=== PATIENT | male | born 1960 | race Caucasian/White ===

== ENCOUNTER → 2016-07-05 | Outpatient (CLI) | payer OTHER ==
[2016-07-05 17:11] LABS: Basophils # (A) 0.1 k/uL (0-0.2); Basophils % (A) 1 %; CH 29.7; CHCM 34.9; Eosinophils # (A) 0.2 k/uL (0-0.7); Eosinophils % (A) 2 %; HDW 2.91; Luc # (Auto) 0.14; Luc % (Auto) 2; Lymphocytes # (A) 2.5 k/uL (1.0-4.8); Lymphocytes % (A) 37 %; MCH 29.7 pg (25.0-35.0); MCHC 34.7 g/dL (31.0-37.0); MCV 85.6 fL (80.0-100.0); Mean Platelet Volume 6.8; Monocytes # (A) 0.4 k/uL (0-1.0); Monocytes % (A) 6 %; Neutrophils # (A) 3.4 k/uL (1.3-7.7); Neutrophils % (A) 51 %; RBC 5.38 m/uL (4.30-5.90); RDW 13.9 % (11.5-15.5); WBC 6.6 k/uL (3.8-10.6); WBC (Perox) 6.66
[2016-07-05 17:23] LABS: Partial Thromboplastin Time 23.8 sec (22.0-30.0); Prothrombin Time 10.1 sec (9.0-12.0)
[2016-07-05 17:25] LABS: Anion Gap 15 mmol/L; Blood Urea Nitrogen 15 mg/dL (9-20); Calcium 9.7 mg/dL (8.4-10.2); Carbon Dioxide 24 mmol/L (22-30); Chloride 104 mmol/L (98-107); Glucose 144 mg/dL (74-99); Non-African American GFR(MDRD) >60 (>60 ml/min/1.73 sqM); Potassium 4.3 mmol/L (3.5-5.1); Sodium 143 mmol/L (137-145)
[2016-07-05 17:44] LABS: Appearance,Urine Clear (Clear); Bilirubin,Urine Negative (Negative); Glucose,Urine (UA) 4+ (Negative); Ketones,Urine 1+ (Negative); Leukocyte Esterase,Urine Negative (Negative); Nitrite,Urine Negative (Negative); Protein,Urine Negative (Negative); Specific Gravity,Urine 1.019 (1.001-1.035); UA Billing (MACRO vs. MICRO) CHEM; Urobilinogen,Urine <2.0 mg/dL (<2.0)
--- NOTE | 2016-07-05 17:49 | XR ---
EXAMINATION TYPE: XR chest 2V DATE OF EXAM: 07/05/2016 5:08 PM COMPARISON: 07/26/2013 HISTORY: Preop testing. Chest pain. TECHNIQUE: Frontal and lateral views of the chest are obtained. FINDINGS: Heart and mediastinum are within normal limits. Lungs are clear of consolidation. Thoracic aorta is atheromatous. There are no hilar masses. There is no pleural effusion. Bony thorax is intac t. IMPRESSION: No active cardiopulmonary disease. No change.
== END ==
LOC: LABPAT 16:31
PROVIDERS: ATTEND Orthopaedic Surgery Orthopaedic Surgery of the Spine
DX: Z01.818 Encounter for other preprocedural examination (principal); Z01.810 Encounter for preprocedural cardiovascular examination; Z01.812 Encounter for preprocedural laboratory examination
CPT/HCPCS: 71020; 80048; 81003; 85025; 85610; 85730; 87070

== ENCOUNTER 2016-07-13 08:36 | Inpatient (IN) | payer BC, OTHER ==
[~2016-07-13 08:36] MED LIST: BACITRACIN 50,000 UNIT, POLYMYXIN B 500,000 UNIT in SODIUM CHLORIDE 0.9% IRRIGATIO 1,00... IRRIGATION ONE; DEXAMETHASONE SOD PHOSPHATE 10 MG/ML 1 ML VIAL IV ONE; LIDOCAINE 1% 20 ML VIAL (10MG/ML) FOR IV START INTRADERMA PRN; MIDAZOLAM 2 MG/2 ML VIAL IV PRN; ONDANSETRON 4 MG/2 ML VIAL IVP ONE; SCOPOLAMINE 1.5MG/72HR PATCH TRANSDERM ONE; ceFAZolin 2 GM in SODIUM CHLORIDE 0.9% 100 ML IVPB ONE
[2016-07-13] MEDS ORDERED: LIDOCAINE 1% 20 ML VIAL (10MG/ML) FOR IV START SQ ONE (09:17)
[2016-07-13] MEDS: LACTATED RINGERS 1,000 ML IV SCH (09:32)
[2016-07-13 09:35] LABS: Glucose,Whole Blood 181 mg/dL (75-99)
[2016-07-13] MEDS ORDERED: GLYCOPYRROLATE 0.2 MG/ML 2 ML VIAL ONE (10:23)
[2016-07-13] MEDS ORDERED: ROCURONIUM BROMIDE 10 MG/ML 10 ML VIAL IV ONE (10:23)
[2016-07-13] MEDS ORDERED: THROMBIN (BOVINE) 5,000 UNIT VIAL TOPICAL ONE (10:23)
[2016-07-13] MEDS ORDERED: HYDROmorphone (PF) 1 MG/ML ONE (10:23)
[2016-07-13] MEDS ORDERED: GELATIN SPONGE,ABSORB (LARGE) 1 EACH SPONGE TOPICAL ONE (10:23)
[2016-07-13] MEDS ORDERED: SUCCINYLCHOLINE CHLORIDE 100 MG/5 ML SYR IV ONE (10:23)
[2016-07-13] MEDS ORDERED: fentaNYL (PF) 50 MCG/ML 2 ML AMP ONE (10:23)
[2016-07-13] MEDS ORDERED: DEXAMETHASONE SOD PHOS (MDV) 100 MG/10 ML VIAL ONE (10:23)
[2016-07-13] MEDS ORDERED: LIDOCAINE 0.5%-EPI 1:200,000 50 ML VIAL SQ ONE (10:23)
[2016-07-13] MEDS ORDERED: LIDOCAINE 1% INJ 10MG/ML (20 ML MDV) ONE (10:23)
[2016-07-13] MEDS ORDERED: MIDAZOLAM 2 MG/2 ML VIAL ONE (10:23)
[2016-07-13] MEDS ORDERED: PROPOFOL 10 MG/ML 20 ML VIAL IV ONE (10:23)
[2016-07-13] MEDS ORDERED: NEOSTIGMINE 1 MG/ML 10 ML VIAL ONE (10:23)
[2016-07-13] MEDS ORDERED: LACTATED RINGERS 1,000 ML IV ONE (11:53)
--- NOTE | 2016-07-13 12:19 | P.OP ---
Date of Procedure: 07/13/16 Preoperative Diagnosis: Herniated nucleus pulposus C7-T1, spondylolisthesis C7-T1, history of prior fusion C5 6 C6 7 Postoperative Diagnosis: Same Anesthesia: GETA Pathology: none sent Condition: stable Operative Findings: BRIEF OPERATIVE NOTE Preoperative Diagnosis: Herniated nucleus pulposis C7-T1, spondylolisthesis C7- T1, history of prior fusion with retained hardware C5 6 C6 7 Postoperative Diagnosis: Same Procedure: Anterior cervical decompression and fusion C7-T1 Placement of interbody graft C7-T1 Local autogenous bone grafting Application of hardware into the interbody graft to C7 and T1 Surgeon: Dr. Maynard Account Collector: Veronica Cain, who is present throughout the entire the case persistence during positioning, dissection, exposure, visualization, and all crucial elements of the case as well as closure. Anesthesia: General anesthesia Estimated blood loss: Approximately 30 mL Complications: None apparent Components implanted: K2M [place] interbody cage with 3.5 x 14 and 16 mm screws and 1 mL of DBX bone putty to supplement the local autogenous bone graft Disposition: To recovery room in good stable condition. OPERATIVE INDICATIONS The patient has had long-standing issues in their neck and upper extremities. In the past he had had similar issues and also he underwent anterior cervical decompression and fusion at C5 6 and C6 7 good resolution of those symptoms. He had done well for a few years however developed symptoms again which seem to stem from the level below at C7-T1. His imaging showed evidence of degeneration with spondylolisthesis at C7-T1 as well as herniated nucleus pulposis which correlated well with his neck and upper extremity symptoms. The patient has been through conservative treatment. He was not having a long-term benefit despite aggressive conservative treatment. He is having worsening of his symptoms. We discussed various treatment options including surgery, and the patient wishes to proceed with surgery We discussed the risk, patient's alternatives and benefits of surgery including but not limited to, risk of bleeding risk of infection, risk of need for further surgery, risk of decreased , loss of motion, muscle function, malunion nonunion, hardware failure, nerve damage, paralysis, heart attack, and . OPERATIVE SUMMARY After discussing all the risks, patient alternatives and benefits at length, the patient elected to proceed with surgical intervention, signed informed consent, and presented for their procedure. The patient was seen and examined in the preoperative holding area and the surgical site was marked. The patient was given antibiotics and brought to the operating room. The patient was positioned on the operating room table in a supine position being careful to pad any bony prominences and pressure points. The patient was sedated and intubated by anesthesia in standard fashion. Once the airway and C- spine were stabilized the patient's arms were padded and tucked at her side, with her shoulders gently taped. The head was placed in a donut pad with the neck in good neutral alignment and position. We were careful to maintain the patient's cervical spine and good neutral alignment and position throughout. We were able to check his cervical spine with fluoroscopic guidance before prepping and draping to make sure we could visualize and appropriately address the C7-T1 level below his prior fusion. We're able to find that we had adequate access to the C7-T1 level anteriorly. The patient was prepped and draped in a normal standard fashion. An appropriate timeout and keystone protocol performed. We were able to proceed with the surgery. The local wound area was infiltrated with local anesthetic. An incision was made transversely approximately 2-1/2 cm over the appropriate levels at C7-T1 below his prior incision site at 4 his prior fusion. Dissection was taken down subcutaneously to the level of the platysma which was split in line with its fibers. Dissection was taken with a carotid approach, with the trachea and esophagus medial and the carotid sheath laterally. We dissected down to the anterior surface of the vertebral bodies. I was able to visualize the inferior aspect of the plate at C7 and immediately caudal to that was the C7-T1 disc level which was easily identified. With the appropriate level positively confirmed, we were able to proceed with discectomy at the appropriate levels. All of the operative levels were exposed appropriately. The patient had all their twitches back, and there was no evidence of recurrent laryngeal issue. The wound was copiously irrigated and suctioned dry as had been done periodically throughout the case. At the appropriate level/levels of C7-T1, I established an annulotomy with an 11 blade scalpel. There were some significant osteophytes which were removed and the bone that was removed was saved for local autogenous bone grafting and placement within the [place] bone cage later in the case. A discectomy was performed with a combination of pituitary rongeurs, curettes, a high-speed bur, and Kerrison rongeurs. There is evidence of disc protrusion and herniation which was remedied at the decompression and discectomy. The posterior longitudinal ligament was taken down as were any posterior osteophytes. This gave good central and bilateral foraminal decompression. There is no evidence of any dural tear or leak. The endplates were prepared with a high-speed bur. With the endplates in good parallel position, I was able to size for the appropriate size interbody graft. The wound was irrigated and suctioned dry the metallic [place] graft was prepared and malleted into position. It had good alignment and position with the anterior surface flush with the anterior surface of the vertebral bodies. Using alignment guide and the establish drill holes I was able to establish screw holes 2 into T1 and 1 into C7 Screw holes were established with a hand drill and drill guide. Screws were placed in good alignment and position with excellent bony purchase. They were seated under the locking device and torqued appropriately. The construct was checked and found to be stable. Intraoperative x-ray was taken which showed good alignment and position of the implants at the appropriate levels. There was no evidence of any dural tear or leak. Good hemostasis was maintained. The wound was copiously irrigated and suctioned dry as had been done periodically throughout the case. The platysma was closed with absorbable suture. The subcutaneous tissue was closed. The subcuticular tissue was closed with absorbable suture. The wound was cleaned and dried and dressed appropriately. A soft cervical collar was placed appropriately. The patient was woken up by anesthesia, extubated, transferred back gently to their hospital bed and brought to the recovery room in good stable condition. The patient will be admitted to the hospital for appropriate postoperative care , medical management and monitoring. We will continue to follow them closely about the postoperative course.
[2016-07-13] MEDS ORDERED: DIAZEPAM 5 MG TAB PO PRN (12:20)
[2016-07-13] MEDS ORDERED: HYDROmorphone 1 MG/ML 1 ML SYRINGE IVP PRN (12:20)
[2016-07-13] MEDS ORDERED: HYDROcodone/APAP 5-325MG 1 EACH TAB PO PRN (12:20)
[2016-07-13] MEDS ORDERED: BENZOCAINE/MENTHOL LOZENG 1 EACH LOZENGE MUCOUS MEM PRN (12:20)
--- NOTE | 2016-07-13 12:20 | FL ---
EXAMINATION TYPE: FL guidance operating room DATE OF EXAM: 07/13/2016 12:06 PM CLINICAL HISTORY: Neck pain TECHNIQUE: Fluoroscopy. COMPARISON: None. FINDINGS: Fluoroscopic guidance was provided during cervical fusion procedure performed by Dr. Maynard . A total of 10 seconds of fluoroscopic time was utilized during the procedure and one spot image is acquired. Single image acquired shows anterior fusion plate from C4 through C6 level. IMPRESSION: As Above.
[2016-07-13] MEDS ORDERED: ALBUTEROL NEBULIZED 2.5 MG/3 ML INHALATION PRN (12:21)
[2016-07-13 13:00] LABS: Glucose,Whole Blood 183 mg/dL (75-99)
--- NOTE | 2016-07-13 13:57 | XR ---
EXAMINATION TYPE: XR cervical spine 1V DATE OF EXAM: 07/13/2016 12:06 PM COMPARISON: NONE HISTORY: 56-year-old male cervical fusion TECHNIQUE: Single intraoperative fluoroscopic view. FINDINGS: Single lateral fluoroscopic view shows C5-C7 ACDF. IMPRESSION: C5-C7 ACDF as above.
[2016-07-13] MEDS: HYDROmorphone 1 MG/ML 1 ML SYRINGE IVP PRN ×2 (14:24→15:36)
[2016-07-13] MEDS ORDERED: SODIUM CHLORIDE 0.9% 1,000 ML IV ONE (15:37)
[2016-07-13] MEDS: ceFAZolin 2 GM in SODIUM CHLORIDE 0.9% 100 ML IVPB SCH (16:43)
[2016-07-13 16:46] LABS: Glucose,Whole Blood 187 mg/dL (75-99)
[2016-07-13] MEDS: SODIUM CHLORIDE 0.9% 1,000 ML IV SCH (17:35)
[2016-07-13 20:32] LABS: Glucose,Whole Blood 192 mg/dL (75-99)
[2016-07-13] MEDS ORDERED: ATORVASTATIN 20 MG TAB PO SCH (21:00)
[2016-07-13] MEDS: GLIMEPIRIDE 2 MG TAB PO SCH (21:02)
[2016-07-13] MEDS: metFORMIN 500 MG TAB PO SCH (21:02)
[2016-07-13] MEDS: ONDANSETRON 4 MG/2 ML VIAL IVP PRN (23:07)
[2016-07-14] MEDS: ceFAZolin 2 GM in SODIUM CHLORIDE 0.9% 100 ML IVPB SCH (00:04)
[2016-07-14] MEDS: SODIUM CHLORIDE 0.9% 1,000 ML IV SCH (04:11)
[2016-07-14] MEDS: LACTATED RINGERS 1,000 ML IV SCH (05:08)
[2016-07-14] MEDS: ONDANSETRON 4 MG/2 ML VIAL IVP PRN (06:09)
[2016-07-14] MEDS ORDERED: ACETAMINOPHEN TAB 325 MG TAB PO STA (06:28)
[2016-07-14 07:23] LABS: Glucose,Whole Blood 180 mg/dL (75-99)
[2016-07-14] MEDS ORDERED: PANTOPRAZOLE 40 MG TABLET PO SCH (07:30)
[2016-07-14 07:57] VITALS: RESP 18
[2016-07-14] MEDS ORDERED: KETOROLAC 30 MG/ML 1 ML VIAL ONE (08:00)
[2016-07-14] MEDS ORDERED: fentaNYL (PF) 50 MCG/ML 2 ML AMP ONE (08:00)
[2016-07-14] MEDS ORDERED: PROPOFOL 10 MG/ML 20 ML VIAL IV ONE (08:00)
[2016-07-14] MEDS ORDERED: GLYCOPYRROLATE 0.2 MG/ML 2 ML VIAL ONE (08:00)
[2016-07-14] MEDS ORDERED: MIDAZOLAM 2 MG/2 ML VIAL ONE (08:00)
[2016-07-14] MEDS ORDERED: NEOSTIGMINE 1 MG/ML 10 ML VIAL ONE (08:00)
[2016-07-14] MEDS ORDERED: HYDROmorphone (PF) 1 MG/ML ONE (08:00)
[2016-07-14] MEDS ORDERED: VECURONIUM 10 MG VIAL IV ONE (08:00)
[2016-07-14] MEDS ORDERED: LIDOCAINE 1% INJ 10MG/ML (20 ML MDV) ONE (08:00)
[2016-07-14] MEDS ORDERED: SUCCINYLCHOLINE CHLORIDE 100 MG/5 ML SYR IV ONE (08:00)
[2016-07-14] MEDS ORDERED: LISINOPRIL 10 MG TAB PO SCH (09:00)
[2016-07-14] MEDS ORDERED: NON-FORMULARY DRUG (Empagliflozin [Jardiance] 10 MG) PO SCH (09:00)
[2016-07-14] MEDS ORDERED: FLUTICASONE 50MCG/SPRAY NASAL 16GM EA NOSTRIL SCH (09:00)
[2016-07-14 09:08] VITALS: BP 132/74; PULSE 101; TEMP 98
[2016-07-14] MEDS: metFORMIN 500 MG TAB PO SCH (09:13)
[2016-07-14] MEDS: GLIMEPIRIDE 2 MG TAB PO SCH (09:14)
--- NOTE | 2016-07-14 10:40 | P.DS ---
Providers Date of admission: 07/13/16 08:36 Attending physician: Bruno Maynard Primary care physician: Adilson Oakes [facility] Course: The patient presented on the day of admission as per his operative note. He underwent anterior cervical discectomy and fusion at C7-T1 for his herniated nucleus pulposis with spondylolisthesis and right upper extremity radiculopathy and weakness. He feels his upper extremity is making improvement today. He had some problems with nausea overnight but feels better today. Physical Exam The incision site is clean dry and intact. There is no erythema no drainage. There is no purulence no evidence of infection. Dressing is changed. His neck is soft and supple. Abdomen soft and nontender. Chest has good excursion with deep inspiration and expiration. The patient has active and passive range of motion intact at the upper and lower extremities. There is no acute change in neurologic status. He is having some improvement in his sensation in his right upper extremity. Hospital Course Postoperative day #1 status post anterior cervical discectomy and fusion C7-T1 for his herniated nucleus pulposis and spondylolisthesis with right upper extremity radiculopathy and weakness. The patient has been making good progress postoperatively. He feels he has made some improvement in his right upper extremity already. He is tolerating soft diet and his nausea is resolved postoperatively. They have completed the prophylactic antibiotics without any signs or symptoms of infection. The patient has been able to advance their diet , and is tolerating diet adequately. The pain was initially controlled with IV medications and is now controlled appropriately with oral medications. The patient has been able to increase their mobilization. The patient has progressed appropriately. I think they are in good stable condition for discharge today. They will be sent home with appropriate prescriptions. I answered their questions to the best of my ability in a language that they can understand and they are agreeable with the plan. They will follow up as directed in approximately 2 weeks or sooner if he is having problems. Patient Condition at Discharge: Good Plan - Discharge Summary New Discharge Prescriptions: HYDROcodone/APAP 5-325MG [[place] 5-325] 1 tab PO Q8HR PRN #90 tab PRN Reason: Pain Discharge Medication List Perindopril Erbumine [Aceon] 4 mg PO DAILY 08/02/13 [History] Omeprazole [PriLOSEC] 20 mg PO AC-BRKFST 08/05/13 [History] metFORMIN HCL 500 mg PO BID 08/05/13 [History] Albuterol Sulfate [Proair Hfa] 1 - 2 puff INHALATION RT-Q6H PRN 07/06/16 [ History] Empagliflozin [Jardiance] 10 mg PO DAILY 07/06/16 [History] Fluticasone Propionate [Flonase Allergy Relief] 1 spray EA NOSTRIL DAILY [History] Glimepiride [Amaryl] 2 mg PO BID 07/06/16 [History] Ibuprofen [Motrin] 800 mg PO Q6HR PRN 07/06/16 [History] Naproxen [Naprosyn] 375 mg PO Q12HR 07/06/16 [History] Simvastatin [Zocor] 40 mg PO HS 07/06/16 [History] HYDROcodone/APAP 5-325MG [[place] 5-325] 1 tab PO Q8HR PRN #90 tab 07/14/16 [Rx] Follow up Appointment(s)/Referral(s): Bruno Maynard DO [Doctor of Osteopathic Medicine] - 2 Weeks Activity/Diet/Wound Care/Special Instructions: Keep site clean. May shower with waterproof dressing intact. Do not soak in a tub. After 72 hours patient may remove dressing and then may shower with area uncovered, but leave Steri-Strips intact and allow them to fray off on their own. Avoid heavy or rigorous activity. May ambulate to tolerance. No heavy lifting. No overhead work. Discharge Disposition: HOME SELF-CARE
[2016-07-14 10:55] VITALS: BMI 30.8
== END 2016-07-14 11:05 | disposition home or self-care (01) | DRG 473 ==
LOC: 2ORMAIN 08:36 → 5MS5E 15:28
PROVIDERS: ADMIT Orthopaedic Surgery Orthopaedic Surgery of the Spine; ATTEND Orthopaedic Surgery Orthopaedic Surgery of the Spine
PROC: 0RT90ZZ Resection of Thoracic Vertebral Disc, Open Approach (ICD-10-PCS; principal; 2016-07-13 13:45)
PROC: 0RT30ZZ Resection of Cervical Vertebral Disc, Open Approach (ICD-10-PCS; principal; 2016-07-13 13:45)
PROC: 0RG40A0 Fusion of Cervicothoracic Vertebral Joint with Interbody Fusion Device, Anterior Approach, Anterior Column, Open Approach (ICD-10-PCS; principal; 2016-07-13 13:45)
DX: M50.221 Other cervical disc displacement at C4-C5 level (principal); I10 Essential (primary) hypertension; M47.22 Other spondylosis with radiculopathy, cervical region; M43.12 Spondylolisthesis, cervical region; E78.5 Hyperlipidemia, unspecified; E11.9 Type 2 diabetes mellitus without complications; Z98.1 Arthrodesis status
CPT/HCPCS: 72020; 86850; 86900; 86901

== ENCOUNTER 2022-04-27 08:10 | Day surgery (SDC) | payer BC ==
[2022-04-25 16:14] VITALS: BMI 33.2
[~2022-04-27 08:10] MED LIST changes: -BACITRACIN 50,000 UNIT, POLYMYXIN B 500,000 UNIT in SODIUM CHLORIDE 0.9% IRRIGATIO 1,00... IRRIGATION ONE; -DEXAMETHASONE SOD PHOSPHATE 10 MG/ML 1 ML VIAL IV ONE; +DEXAMETHASONE SOD PHOSPHATE 4 MG/ML 1 ML VIAL IV ONE; +DEXAMETHASONE SOD PHOSPHATE 4 MG/ML 1 ML VIAL IV PRN; +FAMOTIDINE 20 MG/2 ML VIAL IV PRN; +HYDROmorphone 0.5 MG/0.5 ML SYRINGE IVP PRN; +LACTATED RINGERS 1,000 ML IV SCH; +LIDOCAINE 1% (10MG/ML) FOR IV START INTRADERMA PRN; -LIDOCAINE 1% 20 ML VIAL (10MG/ML) FOR IV START INTRADERMA PRN; +METOCLOPRAMIDE 5 MG/ML 2 ML VIAL IVP PRN; -MIDAZOLAM 2 MG/2 ML VIAL IV PRN; +ONDANSETRON 4 MG/2 ML VIAL IVP PRN; -SCOPOLAMINE 1.5MG/72HR PATCH TRANSDERM ONE; -ceFAZolin 2 GM in SODIUM CHLORIDE 0.9% 100 ML IVPB ONE
[2022-04-27 08:54] VITALS: RESP 16
[2022-04-27] MEDS: OXYMETAZOLINE 0.05% NASL SPRAY 1 SPRAY BOTTLE EA NOSTRIL PRN ×5 (08:54→09:16)
[2022-04-27 09:02] LABS: Glucose,Whole Blood 191 mg/dL (70-110)
[2022-04-27] MEDS ORDERED: LIDOCAINE 2% INJ 20 MG/ML (2 ML VIAL) ONE (09:42)
[2022-04-27] MEDS ORDERED: MIDAZOLAM 2 MG/2 ML VIAL ONE (09:42)
[2022-04-27] MEDS ORDERED: PROPOFOL 10 MG/ML 20 ML VIAL IV ONE (09:42)
[2022-04-27] MEDS ORDERED: SUCCINYLCHOLINE CHLORIDE 200 MG/10 ML VIAL IV ONE (09:42)
[2022-04-27] MEDS ORDERED: LIDOCAINE 4% LTA KIT (4 ML) TOPICAL ONE (09:42)
[2022-04-27] MEDS ORDERED: fentaNYL (PF) 50 MCG/ML 2 ML AMP ONE (09:42)
[2022-04-27] MEDS ORDERED: LIDOCAINE 1%-EPI 1:100,000 20 ML VIAL SUBMUCOSAL ONE ×3 (09:45)
[2022-04-27] MEDS ORDERED: BACITRACIN ZINC 500 UNIT/GM OINT 28.4 GM TUBE TOPICAL ONE ×2 (10:02→10:28)
--- NOTE | 2022-04-27 10:39 | P.OP ---
Date of Procedure: 04/27/22 Preoperative Diagnosis: Deviated nasal septum Inferior turbinate hypertrophy Chronic sinusitis Postoperative Diagnosis: Same Procedure(s) Performed: Septoplasty Outfracture and submucous resection inferior turbinates Bilateral endoscopic sinus surgery including bilateral maxillary antrostomy, bilateral maria isabel bullectomy Anesthesia: ANTHONY Surgeon: Tommy Dalton Estimated Blood Loss (ml): 100 Pathology: other (Nasal septal bone and cartilage and sinus contents) Condition: stable Disposition: PACU Indications for Procedure: This 62-year-old white male with difficulties with nasal airway obstruction congestion and chronic sinusitis Operative Findings: Nasal septum deviated to the right with inferior turbinate hypertrophy. Bilateral maxillary sinuses have mucosal thickening with bilateral maria isabel bullosa cells. Patient had diffuse inflammation of the mucosa intranasally and therefore oozing throughout the case making visualization difficult and therefore the ethmoidectomies were deferred Description of Procedure: The patient was brought into the operative suite and placed in a supine position. The patient underwent induction of general anesthesia with oral endotracheal intubation without difficulty. The patient was prepped and draped in the usual aseptic fashion with the orbits in the operating field for monitoring to the case and the computed tomography scan was on the computer screen for review throughout the case. 1% lidocaine with 1 :100,000 epinephrine was infused submucosally into both sides of the nasal septum as well as the lateral nasal wall and anterior tips of the middle turbinates. While this was taking vasoconstrictive effect the inferior turbinates were infractured with Lander elevator and partial submucous resection of the inferior turbinates was performed with a portion of the submuc osal soft tissue and the inferior turbinate bone removed with Coblation device. The inferior turbinates were then outfractured with the Lander elevator. A left hemitransfixion incision was then made with the mucoperichondrial and mucoperiosteal flap on the left elevated. The bony cartilaginous junction was disarticulated and the mucoperiosteal flap on the right was elevated. Bony nasal septal deformities were removed with Jason forceps and an inferior cartilaginous strip was removed leaving a full 1.5 cm caudal strut. Checking intranasally this corrected the nasoseptal deformities and the hemitransfixion incision was closed with a running 4-0 chromic suture. Full 0 endoscopic examination is performed bilaterally. Beginning on the left, the middle turbinate was medialized. The maxillary ostium was located with a ballpoint probe and an infundibulotomy was performed followed by uncinectomy. The maxillary antrostomy was enlarged at the expense of the anterior and posterior fontanelle taking care anteriorly not to injure the lacrimal bone. The maxillary sinus was evaluated with 30 and 70 endoscope .[Abnormal appearing tissue was removed from the maxillary sinus]. Bilateral maria isabel bullectomy was performed with microdebrider. Due to the diffuse oozing from the mucosa at this point it was elected to defer the ethmoidectomy due to decreased visualization. Attention was then turned to the right where the procedures were followed as they had been on the left including the maxillary antrostomies and maria isabel bullectomy [Nasopore nasal dressing was placed in the middle meatus bilaterally under direct visualization]. Bilateral 8 cm Merocel packs coated with bacitracin ointment were placed and sutured transseptally with a 4-0 nylon suture. The patient was suctioned in oral gastric fashion and was allowed to emerge from general anesthesia having tolerated procedure well and was extubated in the operating suite and transferred to the postoperative recovery area in satisfactory condition.
[2022-04-27 10:56] VITALS: TEMP 97.3
[2022-04-27] MEDS ORDERED: LACTATED RINGERS 1,000 ML IV ONE (11:40)
[2022-04-27 12:18] VITALS: BP 125/80; PULSE 92
== END 2022-04-27 12:34 | disposition home or self-care (01) ==
LOC: OR 08:10
PROVIDERS: ATTEND Otolaryngology
DX: J34.2 Deviated nasal septum (principal); J34.3 Hypertrophy of nasal turbinates; J32.0 Chronic maxillary sinusitis; I10 Essential (primary) hypertension; E11.65 Type 2 diabetes mellitus with hyperglycemia; Z79.4 Long term (current) use of insulin; K21.9 Gastro-esophageal reflux disease without esophagitis; H91.90 Unspecified hearing loss, unspecified ear; Z98.1 Arthrodesis status; F10.20 Alcohol dependence, uncomplicated; Z83.3 Family history of diabetes mellitus; Z82.2 Family history of deafness and hearing loss; Z79.1 Long term (current) use of non-steroidal anti-inflammatories (NSAID); Z79.2 Long term (current) use of antibiotics; Z79.51 Long term (current) use of inhaled steroids; Z79.891 Long term (current) use of opiate analgesic; Z79.899 Other long term (current) drug therapy; Z79.83 Long term (current) use of bisphosphonates; E66.9 Obesity, unspecified; Z68.32 Body mass index [BMI] 32.0-32.9, adult
CPT/HCPCS: 30520; 31240; 31256; 88305; 88300; J2250; J0330; J1100; J0690; J2405; J3010; J2704; J2001

== ENCOUNTER → 2024-06-10 | Outpatient (CLI) | payer MEDICARE ==
--- NOTE | 2024-06-10 13:11 | XR ---
EXAMINATION TYPE: XR chest 2V DATE OF EXAM: 06/10/2024 12:40 PM COMPARISON: Chest radiographs from 07/05/2016. CLINICAL INDICATION: Male, 64 years old with history of Z01.818 PRE OP; [facility] TECHNIQUE: XR chest 2V Frontal and lateral views of the chest. FINDINGS: Lungs/Pleura: There is no evidence of pleural effusion, focal consolidation, or pneumothorax. Pulmonary vascularity: Unremarkable. Heart/mediastinum: Cardiomediastinal silhouette is unremarkable. Musculoskeletal: No acute osseous pathology. There is fixation hardware in the lower cervical spine. Other findings: None IMPRESSION: No acute cardiopulmonary disease/process. [facility], , 06/10/2024 1:08 PM
[2024-06-10 13:42] LABS: Partial Thromboplastin Time 23.4 sec (22.0-30.0); Prothrombin Time 10.7 sec (10.0-12.5)
[2024-06-10 15:13] LABS: Basophils # (A) 0.08 X 10*3/uL (0.00-0.10); Basophils % (A) 1.2 %; Eosinophils # (A) 0.17 X 10*3/uL (0.04-0.35); Eosinophils % (A) 2.5 %; HCT 51.2 % (39.6-50.0); HGB 16.5 g/dL (13.0-17.0); Lymphocytes # (A) 2.51 X 10*3/uL (0.90-5.00); Lymphocytes % (A) 37.2 %; MCHC 32.2 g/dL (32.0-37.0); MCV 86.9 FL (80.0-97.0); Mean Platelet Volume 9.3 FL (9.5-12.2); Monocytes # (A) 0.51 X 10*3/uL (0.20-1.00); Monocytes % (A) 7.6 %; NRBC Per 100 WBC 0 X 10*3/uL (0.00-0.01); Neutrophils # (A) 3.46 X 10*3/uL (1.80-7.70); Neutrophils % (A) 51.2 %; Platelet Count 216 X 10*3/uL (140-440); RBC 5.89 X 10*6/uL (4.40-5.60); RDW 13.1 % (11.5-14.5); WBC 6.75 X 10*3/uL (4.50-10.00)
[2024-06-10 15:29] LABS: BUN/Creat Ratio 12.44 Ratio (12.00-20.00); Blood Urea Nitrogen 11.2 mg/dL (9.0-27.0); Calcium 9.9 mg/dL (8.7-10.3); Carbon Dioxide 25.9 mmol/L (21.6-31.8); Chloride 100 mmol/L (96-109); Glucose 177 mg/dL (70-110); Potassium 4.5 mmol/L (3.5-5.5); Sodium 138 mmol/L (135-145)
[2024-06-10 21:27] LABS: Appearance,Urine Clear (Clear); Bilirubin,Urine Negative (Negative); Blood,Urine Negative (Negative); Color,Urine Yellow (Yellow); Ketones,Urine Negative (Negative); Nitrite,Urine Negative (Negative); Specific Gravity,Urine 1.013 (1.001-1.030); Urobilinogen,Urine 0.2 E.U./DL
== END | disposition home or self-care (01) ==
LOC: LABPAT 11:44
PROVIDERS: ATTEND Orthopaedic Surgery Orthopaedic Surgery of the Spine
DX: Z01.818 Encounter for other preprocedural examination (principal); Z22.322 Carrier or suspected carrier of Methicillin resistant Staphylococcus aureus; M48.02 Spinal stenosis, cervical region
CPT/HCPCS: 71046; 80048; 81003; 85025; 85610; 85730; 86850; 86900; 86901; 87070; 93005

== ENCOUNTER 2024-06-19 06:40 | Day surgery (SDC) | payer BC, MEDICARE ==
[2024-06-14 10:23] VITALS: BMI 32.5
[2024-06-19] MEDS: IV FLUID CONTINUATION 1,000 ML IV ONE ×2 (07:43→07:49)
[2024-06-19 07:45] LABS: Glucose,Whole Blood 137 mg/dL (70-110)
[2024-06-19] MEDS: ONDANSETRON 4 MG/2 ML VIAL IVP ONE (07:54)
[2024-06-19] MEDS: LACTATED RINGERS 1,000 ML IV SCH (07:55)
[2024-06-19] MEDS ORDERED: MIDAZOLAM 2 MG/2 ML VIAL ONE (08:19)
[2024-06-19] MEDS ORDERED: LIDOCAINE 1% INJ 10MG/ML (20 ML MDV) ONE (08:19)
[2024-06-19] MEDS ORDERED: GLYCOPYRROLATE 0.2 MG/ML 2 ML VIAL ONE (08:19)
[2024-06-19] MEDS ORDERED: DEXAMETHASONE SOD PHOSPHATE 10 MG/ML 1 ML VIAL ONE (08:19)
[2024-06-19] MEDS ORDERED: PROPOFOL 10 MG/ML 20 ML VIAL IV ONE (08:19)
[2024-06-19] MEDS ORDERED: SUCCINYLCHOLINE CHLORIDE 200 MG/10 ML VIAL IV ONE (08:19)
[2024-06-19] MEDS ORDERED: PHENYLEPHRINE 10 MG/ML VIAL ONE (08:19)
[2024-06-19] MEDS ORDERED: KETAMINE HCL IN 0.9 % NACL 50 MG/5 ML SYRINGE ONE (08:19)
[2024-06-19] MEDS ORDERED: HYDROmorphone (PF) 1 MG/ML ONE (08:19)
[2024-06-19] MEDS ORDERED: fentaNYL (PF) 50 MCG/ML 2 ML AMP ONE (08:19)
[2024-06-19] MEDS ORDERED: NEOSTIGMINE 1 MG/ML 10 ML VIAL ONE (08:19)
[2024-06-19] MEDS ORDERED: ROCURONIUM 10 MG/ML (5 ML VIAL) IV ONE (08:19)
[2024-06-19] MEDS: BUPIVACAINE (PF) 0.5% 30 ML VIAL SQ ONE (08:57)
[2024-06-19] MEDS: LIDOCAINE 2%-EPI 1:100,000 20 ML VIAL SQ ONE (08:57)
[2024-06-19] MEDS: LACTATED RINGERS 1,000 ML IV ONE (10:19)
--- NOTE | 2024-06-19 10:40 | XR ---
EXAMINATION TYPE: XR cervical spine limited DATE OF EXAM: 06/19/2024 COMPARISON: NONE CLINICAL INDICATION: Male, 64 years old with history of NEEDLE PLACEMENT; TECHNIQUE: Crosstable lateral view of the cervical spine FINDINGS: Localization device is noted at the C3-4 level anteriorly. Partially imaged fixation plate and screws at C5-C7. IMPRESSION: As above [facility], , 06/19/2024 10:38 AM
[2024-06-19] MEDS ORDERED: BENZOCAINE/MENTHOL LOZENG 1 EACH LOZENGE MUCOUS MEM PRN (10:46)
--- NOTE | 2024-06-19 10:55 | P.OP ---
Date of Procedure: 06/19/24 Preoperative Diagnosis: Spinal stenosis C3-4 C4-5, disc herniation C3-4 C4-5, upper extremity colopathy, history of prior anterior cervical fusion C5-6 C6-7 C7-T1 with retained hardware Postoperative Diagnosis: Same plus findings of stable hardware at C5 Anesthesia: GETA Pathology: none sent Condition: stable Disposition: PACU Description of Procedure: BRIEF OPERATIVE NOTE Preoperative Diagnosis:Spinal stenosis C3-4 C4-5, disc herniation C3-4 C4-5, upper extremity colopathy, history of prior anterior cervical fusion C5-6 C6-7 C7-T1 with retained hardware Postoperative Diagnosis:Spinal stenosis C3-4 C4-5, disc herniation C3-4 C4-5, upper extremity colopathy, history of prior anterior cervical fusion C5-6 C6-7 C7-T1 with retained hardware with findings of stable hardware at C5 5 Procedure: Anterior cervical decompression with discectomy and fusion C3-4 C4-5 Placement of interbody graft with a stable C stand-alone device at C3-4 C4-5 Harvesting of local autogenous bone graft to supplement the allograft bone graft for fusion Surgeon: Dr. Maynard Accountant Auditor: Suman ROLDAN who is present throughout the entire the case persistence during positioning, dissection, exposure, visualization, and all crucial elements of the case as well as closure. Anesthesia: General anesthesia Estimated blood loss: Approximately 50 cc Complications: None apparent Components implanted: K2M [place] Stable C stand-alone interbody graft at C3-4 C4-5 with local autogenous bone graft as well as allograft bone graft Disposition: To recovery room in good stable condition. OPERATIVE INDICATIONS The patient has had long-standing issues in their neck and upper extremities. He has been through multiple surgeries at his anterior cervical spine a number of years ago. He has done well with his surgeries with prior fusion at C5-6, C6-7, and C7-T1 at a subsequent date. He was happy with his results and they last him for several years. However over the past several months he has been having worsening of his symptoms in his neck and his upper extremities. He was found to have evidence of progressive adjacent level degeneration at C3-4 and C4-5 with severe cervical stenosis which correlated well with his neck and upper extremity symptoms. He was having worsening despite conservative care. The patient has been through conservative treatment. We discussed various treatment options including surgery, and the patient wishes to proceed with surgery We discussed the risk, patient's alternatives and benefits of surgery including but not limited to, risk of bleeding risk of infection, risk of need for further surgery, risk of decreased, loss of motion, muscle function, malunion nonunion, hardware failure, nerve damage, paralysis, heart attack, and . OPERATIVE SUMMARY After discussing all the risks, patient alternatives and benefits at length, the patient elected to proceed with surgical intervention, signed informed consent, and presented for their procedure. The patient was seen and examined in the preoperative holding area and the surgical site was marked. The patient was given antibiotics and brought to the operating room. The patient was positioned on the operating room table in a supine position being careful to pad any bony prominences and pressure points. The patient was sedated and intubated by anesthesia in standard fashion. Once the airway and C- spine were stabilized the patient's arms were padded and tucked at her side, with her shoulders gently taped. The head was placed in a donut pad with the neck in good neutral alignment and position. We were careful to maintain the patient's cervical spine and good neutral alignment and position throughout. The patient was prepped and draped in a normal standard fashion. An appropriate timeout and keystone protocol performed. We were able to proceed with the surgery. The local wound area was infiltrated with local anesthetic. An incision was made transversely approximately 2-1/2 cm over the appropriate levels above the prior fusion and about C4. Dissection was taken down subcutaneously to the level of the platysma which was split in line with its fibers. Dissection was taken with a carotid approach, with the trachea and esophagus medial and the carotid sheath laterally. We dissected down to the anterior surface of the vertebral bodies. Able to expose the superior aspect of the plate at C5 and it was checked and found to be stable. There are osteophytes at the anterior aspects of C3-4 and C4-5. These were taken down and removed for local antis bone graft. Intraoperative x-ray was taken which showed a marker at the appropriate level at C3-4. With the appropriate level positively confirmed, we were able to proceed with discectomy at the appropriate levels at C3-4 and then moving to C4-5. All of the operative levels were exposed appropriately. The patient had all their twitches back, and there was no evidence of recurrent laryngeal issue. The wound was copiously irrigated and suctioned dry as had been done periodically throughout the case. At the appropriate level/levels, I established an annulotomy with an 11 blade scalpel. A discectomy was performed with a combination of pituitary rongeurs, curettes, a high-speed bur, and Kerrison rongeurs. The posterior longitudinal ligament was taken down as were any posterior osteophytes. It was obvious that there was significant disc herniation and disc protrusion with posterior osteophytes causing central and bilateral foraminal stenosis at each of the levels. This was taken down and remedied with the discectomy and decompression. This gave good central and bilateral foraminal decompression. There is no evidence of any dural tear or leak. The endplates were prepared with a high-speed bur. With the endplates in good parallel position, I was able to size for the appropriate size interbody graft. I decided to use a stand-alone interbody graft with a [place] Stable C implant. With C-arm guidance I was able to place the implant in place at the midline with the anterior surface just deep of the anterior surface the vertebral bodies was able to deploy the locking device into the vertebral bodies with good stability. The implants were checked and found to have good stability. This was done similarly at see 3 4 and then at C4-5. The wound was irrigated and suctioned dry the graft was prepared and malleted into position. It had good alignment and position with the anterior surface flush with the anterior surface of the vertebral bodies. This was done similarly the appropriate levels. The construct was checked and found to be stable. Intraoperative x-ray was taken which showed good alignment and position of the implants at the appropriate levels. There was no evidence of any dural tear or leak. Good hemostasis was maintained. The wound was copiously irrigated and suctioned dry as had been done periodically throughout the case. The platysma was closed with absorbable suture. The subcutaneous tissue was closed. The subcuticular tissue was closed with absorbable suture. The wound was cleaned and dried and dressed appropriately. A soft cervical collar was placed appropriately. The patient was woken up by anesthesia, extubated, transferred back gently to their hospital bed and brought to the recovery room in good stable condition. The patient will be admitted to the hospital for appropriate postoperative care, medical management and monitoring. We will continue to follow them closely abou t the postoperative course.
[2024-06-19] MEDS: HYDROmorphone 0.5 MG/0.5 ML SYRINGE IVP PRN (11:03)
[2024-06-19] MEDS: SODIUM CHLORIDE 0.9% 1,000 ML IV SCH (15:11)
[2024-06-19] MEDS: DEXAMETHASONE SOD PHOSPHATE 4 MG/ML 1 ML VIAL IV ONE (15:11)
[2024-06-19] MEDS: HYDROmorphone 1 MG/ML 1 ML SYRINGE IVP PRN (15:18)
[2024-06-19] MEDS: ONDANSETRON 4 MG/2 ML VIAL IVP PRN ×2 (15:33→20:46)
[2024-06-19] MEDS: CYCLOBENZAPRINE 10 MG TAB PO PRN (17:28)
[2024-06-19] MEDS: HYDROcodone/APAP 5-325MG 1 EACH TAB PO PRN (17:28)
[2024-06-19] MEDS: metFORMIN 500 MG TAB PO SCH (20:48)
[2024-06-19] MEDS: lisinopriL 20 MG TAB PO SCH (20:48)
[2024-06-19 21:03] LABS: Glucose,Whole Blood 246 mg/dL (70-110)
--- NOTE | 2024-06-20 00:01 | FL ---
EXAMINATION TYPE: FL guidance operating room DATE OF EXAM: 06/19/2024 10:27 AM COMPARISON: Pre Operative Images if available both CT/MRI or plain film CLINICAL INDICATION: Male, 64 years old with history of CERVICAL FUSION; TECHNIQUE: FL guidance operating room, multiple fluoroscopic images provided for procedure. DAP: 0.118 mGym2 Gycm2 uGym2 cGycm2 or equivalent. FINDINGS: Fluoroscopic images during internal fixation/arthroplasty demonstrate hardware in appropriate positio n. Hardware appears intact. No immediate complication identified. IMPRESSION: 1. No evidence for intraoperative complication. 2. Please see the operative/procedural note for further details. [facility], , 06/19/2024 11:59 PM
[2024-06-20 06:27] LABS: Glucose,Whole Blood 205 mg/dL (70-110)
[2024-06-20] MEDS: CYANOCOBALAMIN 500 MCG TAB PO SCH (08:26)
[2024-06-20] MEDS: ASCORBIC ACID 500 MG TAB PO SCH (08:26)
[2024-06-20] MEDS: CHOLECALCIFEROL 25 MCG (1000 IU) TABLET PO SCH (08:26)
[2024-06-20] MEDS: PANTOPRAZOLE 40 MG TABLET PO SCH (08:27)
[2024-06-20] MEDS: ATORVASTATIN 20 MG TAB PO SCH (08:27)
[2024-06-20 09:49] VITALS: BP 114/68; PULSE 107; RESP 18; TEMP 97.9
--- NOTE | 2024-06-20 09:49 | P.DS ---
Providers Date of admission: 06/19/24 Attending physician: Bruno Maynard Primary care physician: Adilson Oakes [facility] Hospital Course: The patient presented on the day of admission as per their operative note. He had significant stenosis C3-4 C4-5 at the cervical spine with neck pain upper extremity radicular symptoms and has had a prior surgery in his neck in the past. Patient went through surgery as per his operative note and this morning he is feeling excellent. He says his arms are feeling significantly better. His nausea is resolved. He is ambulatory around his room. He is voiding freely and tolerating his diet. He feels his arm symptoms are better today than they were yesterday. Physical Exam The incision site is clean dry and intact. There is no erythema no drainage. There is no purulence no evidence of infection. His neck is soft and supple. There is no drainage. There is no significant swelling. Abdomen soft and nontender. Chest has good excursion with deep inspiration and expiration. The patient has active and passive range of motion intact at the upper and lower extremities. There is no acute change in neurologic status. He has good motion in his bilateral upper extremities and good strength in his hands and fingers. Hospital Course Postoperative day #1 status post anterior cervical decompression with discectomy and fusion C3-4 C4-5 for severe cervical stenosis with disc herniation upper extremity radiculopathy. The patient has been making good progress postoperatively. He feels like he is making steady improvement. His prior fusion of cervical spine was stable at time of surgery. They have completed the prophylactic antibiotics without any signs or symptoms of infection. The patient has been able to advance their diet, and is tolerating diet adequately. The pain was initially controlled with IV medications and is now controlled appropriately with oral medications. The patient has been able to increase their mobilization. The patient has progressed appropriately. I think they are in good stable c ondition for discharge today. They will be sent home with appropriate prescriptions. I answered their questions to the best of my ability in a language that they can understand and they are agreeable with the plan. They will follow up as directed. Patient Condition at Discharge: Good Plan - Discharge Summary Discharge Rx Participant: No New Discharge Prescriptions: New HYDROcodone/APAP 5-325MG [Newcomb 5-325] 1 tab PO Q6HR PRN 7 Days #28 tab PRN Reason: Pain No Action Perindopril Erbumine [Aceon] 4 mg PO BID Simvastatin [Zocor] 40 mg PO DAILY metFORMIN HCL ER [Glucophage XR] 500 mg PO BID Cyclobenzaprine [Flexeril] 5 mg PO HS Omeprazole Magnesium [PriLOSEC OTC] 20 mg PO DAILY Insulin Glargine/Lixisenatide [[place] 100 Unit-33 Mcg/ml Pen] 60 units SQ QAM Cyanocobalamin (Vitamin B-12) [Vitamin B-12] 5,000 mcg PO DAILY Cholecalciferol (Vitamin D3) [Vitamin D3 (50 Mcg = 2000 Iu)] 50 mcg PO DAILY Ascorbic Acid [Vitamin C] 1,000 mg PO DAILY Discharge Medication List Perindopril Erbumine [Aceon] 4 mg PO BID 08/02/13 [History] Simvastatin [Zocor] 40 mg PO DAILY 07/06/16 [History] Cyclobenzaprine [Flexeril] 5 mg PO HS 04/25/22 [History] metFORMIN HCL ER [Glucophage XR] 500 mg PO BID 04/25/22 [History] Ascorbic Acid [Vitamin C] 1,000 mg PO DAILY 06/14/24 [History] Cholecalciferol (Vitamin D3) [Vitamin D3 (50 Mcg = 2000 Iu)] 50 mcg PO DAILY 06/14/24 [History] Cyanocobalamin (Vitamin B-12) [Vitamin B-12] 5,000 mcg PO DAILY 06/14/24 [History] Insulin Glargine/Lixisenatide [[place] 100 Unit-33 Mcg/ml Pen] 60 units SQ QAM 06/14/24 [History] Omeprazole Magnesium [PriLOSEC OTC] 20 mg PO DAILY 06/14/24 [History] HYDROcodone/APAP 5-325MG [Newcomb 5-325] 1 tab PO Q6HR PRN 7 Days #28 tab 06/20/24 [Rx] Follow up Appointment(s)/Referral(s): Bruno Maynard DO [Doctor of Osteopathic Medicine] - 2 Weeks Activity/Diet/Wound Care/Special Instructions: Keep site clean. May shower with waterproof Tegaderm intact. Do not soak in a tub. After 72 hours postoperatively, patient May remove dressing and then may shower with area uncovered. Leave glue intact and allow it to fray off on its own. May ambulate as tolerated. Avoid heavy or rigorous activity. No repetitive bending twisting or lifting. No overhead work. Discharge Disposition: HOME SELF-CARE
[2024-06-20] MEDS: PATIENT'S OWN (Insulin Glargine/Lixisenatide [Soliqua 100 Unit-33 Mcg/Ml Pen] 3 ML In SQ SCH (11:25)
== END 2024-06-20 11:26 | disposition home or self-care (01) ==
LOC: OR 06:40 → 4SSUR 12:48 → OR 06-20 11:26
PROVIDERS: ATTEND Orthopaedic Surgery Orthopaedic Surgery of the Spine
DX: M48.02 Spinal stenosis, cervical region (principal); M50.11 Cervical disc disorder with radiculopathy, high cervical region; M50.121 Cervical disc disorder at C4-C5 level with radiculopathy; Z98.1 Arthrodesis status; M43.16 Spondylolisthesis, lumbar region; M47.816 Spondylosis without myelopathy or radiculopathy, lumbar region; M51.360 Other intervertebral disc degeneration, lumbar region with discogenic back pain only; M62.830 Muscle spasm of back; R07.82 Intercostal pain; R29.898 Other symptoms and signs involving the musculoskeletal system; E11.9 Type 2 diabetes mellitus without complications; E78.5 Hyperlipidemia, unspecified; I10 Essential (primary) hypertension; Z98.890 Other specified postprocedural states; Z79.899 Other long term (current) drug therapy; Z79.85 Long-term (current) use of injectable non-insulin antidiabetic drugs; Z79.84 Long term (current) use of oral hypoglycemic drugs
CPT/HCPCS: 72040; 22551; 22552; 22853 ×2; 20930; 20936; C1713 ×2; J2250; J0330; J1100; J2710; J0690 ×2; J2405; J2003; J3010; J1171 ×2; J2704; J2371; J0665; J1596